=== PATIENT | male | born 1975 | race Caucasian/White ===

== ENCOUNTER 2017-08-03 17:41 | Emergency (ER) | payer OTHER, BC ==
[2017-08-03 17:57] VITALS: BP 149/50
--- NOTE | 2017-08-03 18:19 | UC ---
Knee Pain HPI - HPI Summary HPI Summary: 41 yo male with progressively worsening left knee pain x days touch /bending worsen pain 4 days ago was on knees working on furnace no injury - History of Current Complaint Chief Complaint: UCLowerExtremity Stated Complaint: KNEE PAIN Time Seen by Provider: 08/03/17 17:51 Hx Obtained From: Patient Onset/Duration: Gradual Onset, Lasting Days Severity Initially: Mild Severity Currently: Moderate Pain Intensity: 7 Pain Scale Used: 0-10 Numeric Character: Aching, Throbbing Aggravating Factor(s): Movement, Stairs Alleviating Factor(s): Rest, OTC Meds Associated Signs And Symptoms: Positive: Swelling Able to Bear Weight: Yes - Allergies/Home Medications Allergies/Adverse Reactions: Allergies Allergy/AdvReac Type Severity Reaction Status Date / Time seasonal Allergy Congestion Uncoded 08/03/17 17:52 Home Medications: Home Medications Naproxen Sodium [Aleve] 440 mg PO Q12H PRN 08/03/17 [History Confirmed 08/03/17] Smock-3 Fatty Acids/Fish Oil [Fish Oil 1,000 mg Capsule] 1 each PO DAILY [History Confirmed 08/03/17] PMH/Surg Hx/FS Hx/Imm Hx Previously Healthy: Yes - Surgical History Surgical History: Yes Surgery Procedure, Year, and Place: AGE 15-WISDOM TEETH EXTRACTION. 1991 REPAIR NOSE FRACTURE, [facility] [place]/23/2015 CYSTOSCOPY, RIGHT RETROGRADE, RIGHT URETERAL STENT INSERTION, [facility] [place] - Family History Known Family History: Positive: Hypertension - Social History Alcohol Use: Occasionally Substance Use Type: None Smoking Status (MU): Never Smoked Tobacco Have You Smoked in the Last Year: No - Immunization History Most Recent Influenza Vaccination: never Most Recent Tetanus Shot: less than 5 years Most Recent Pneumonia Vaccination: never Review of Systems Constitutional: Negative Skin: Negative Eyes: Negative ENT: Negative Respiratory: Negative Cardiovascular: Negative Gastrointestinal: Negative Genitourinary: Negative Motor: Negative Neurovascular: Negative Musculoskeletal: Arthralgia Neurological: Negative Psychological: Negative Is Patient Immunocompromised?: No All Other Systems Reviewed And Are Negative: Yes Physical Exam Triage Information Reviewed: Yes Appearance: Well-Appearing, No Pain Distress, Well-Nourished Vital Signs: Initial Vital Signs Temp 99.0 F 08/03/17 17:52 Pulse 71 08/03/17 17:52 Resp 18 08/03/17 17:52 BP 149/50 08/03/17 17:52 Pulse Ox 100 08/03/17 17:52 Vital Signs Reviewed: Yes Eyes: Positive: Conjunctiva Clear ENT: Positive: Hearing grossly normal. Negative: Nasal congestion, Nasal drainage, Trismus, Hoarse voice Neck: Positive: Supple, Nontender, No Lymphadenopathy Respiratory: Positive: Lungs clear, Normal breath sounds, No respiratory distress Cardiovascular: Positive: RRR, No Murmur Musculoskeletal: Positive: Edema @, Other: - see image Neurological: Positive: Alert Psychological Exam: Normal Skin: Positive: Other - skin intact over left knee Knee Pain Course/Dx - Differential Dx/Diagnosis Provider Diagnoses: left prepatellar bursitis Discharge - Sign-Out/Discharge Documenting (check all that apply): Discharge/Admit/Transfer - Discharge Plan Condition: Stable Disposition: HOME Patient Education Materials: Knee Bursitis (ED) Forms: *Work Release Referrals: [facility] [Outside] - As Soon As Possible Edita Sesay MD [Primary Care Provider] - If Needed Janine Leiva MD [Medical Doctor] - As Soon As Possible Additional Instructions: you have a left knee PRE PATELLAR BURSITIS rest heat RECHECK KIZZY FOR FEVER aleve 2 twice daily with food I suggest you recheck this week with either ortho or sports medicine for consideration of a steroid injection if not better - Billing Disposition and Condition Condition: STABLE Disposition: HOME Images Front/Back of Body, Lg (Sanders): 1 - swollen and warm /tender left prepatellar bursa, no joint effusion or tenderness
== END 2017-08-03 18:32 | disposition home or self-care (01) ==
LOC: UCEAST 17:41
DX: M70.42 Prepatellar bursitis, left knee (principal); Y93.9 Activity, unspecified
CPT/HCPCS: 99211; G0463